=== PATIENT | male | born 1995 | race Caucasian/White ===

== ENCOUNTER 2021-04-30 20:01 | Emergency (ER) | payer SELFPAY ==
[2021-04-30] MEDS ORDERED: Sodium Chloride 0.9% 100 ML BAG FS ONE (20:02)
[2021-04-30] MEDS ORDERED: Iopamidol 370 76% 125 ML VIAL FS ONE (20:02)
[2021-04-30] MEDS ORDERED: Ondansetron PF 4 MG/2 ML Vial ONE (21:07)
[2021-04-30] MEDS ORDERED: Lactated Ringer's 2,000 ML ONE (21:07)
[2021-04-30] MEDS ORDERED: Acetaminophen 500 MG TAB ONE (21:07)
[2021-04-30 21:36] LABS: #Basophils 0.1 thou/uL (0.0-0.2); #Lymphocytes 0.5 thou/uL (1.20-3.40); #Monocytes 0.7 thou/uL (0.11-0.59); #Neutrophils 8.4 thou/uL (1.40-6.50); %Basophils 0.8 % (0.0-1.0); %Eosinophils 0.1 % (0.0-10.0); %Lymphocytes 4.9 % (21.0-51.0); %Monocytes 6.7 % (0.0-10.0); %Neutrophils 87.5 % (42.0-75.0); Hemoglobin 17.7 g/dL (14.0-18.0); Mean Corpuscular HGB CONC 32.2 g/dL (32.0-36.0); Mean Corpuscular Hemoglobin 28.8 pg (27.0-31.0); Mean Corpuscular Volume 89.4 fL (78.0-98.0); Mean Platelet Volume 11.1 fL (7.4-10.4); Platelet Count 144 thou/uL (130-400); RBC Distribution Width 11.1 % (11.5-14.5); Red Blood Cell (RBC) Count 6.14 mill/uL (4.70-6.10); White Blood Cell (WBC) Count 9.6 thou/uL (4.8-10.8)
[2021-04-30 21:49] LABS: ALT (SGPT) 45 U/L (8-55); AST (SGOT) 27 U/L (5-34); Albumin 4.5 g/dL (3.5-5.0); Alkaline Phosphatase 48 U/L (40-110); Anion Gap 16 mmol/L (10-20); BUN (Urea Nitrogen) 14 mg/dL (8.9-20.6); Bilirubin, Total 0.9 mg/dL (0.2-1.2); Calc. Creatinine Clearance 0 mL/min (70-130); Calcium 9.2 mg/dL (7.8-10.44); Carbon Dioxide 22 mmol/L (22-29); Chloride 104 mmol/L (98-107); Globulin 3.2 g/dL (2.4-3.5); Glucose 123 mg/dL (70-105); Lipase 18 U/L (8-78); Magnesium 1.5 mg/dL (1.6-2.6); Potassium 3.5 mmol/L (3.5-5.1); Protein, Total 7.7 g/dL (6.0-8.3); Sodium 138 mmol/L (136-145)
[2021-04-30] MEDS ORDERED: Ibuprofen 800 MG TAB ONE (22:21)
[2021-04-30] MEDS ORDERED: Magnesium 2 GM/50 ML BAG (IN WATER) ONE ×2 (22:21→22:28)
[2021-05-01] MEDS ORDERED: Diphenoxylate HCl/Atropine Tablet ONE (00:33)
[2021-05-01 17:57] LABS: SARS-CoV-2 PCR by NAA Not Detected (NotDetected)
== END 2021-05-01 01:58 | disposition home or self-care (01) ==
LOC: MADERS 20:01
DX: R19.7 Diarrhea, unspecified (principal); E83.42 Hypomagnesemia; J06.9 Acute upper respiratory infection, unspecified; R79.1 Abnormal coagulation profile; R00.0 Tachycardia, unspecified; Z20.822 Contact with and (suspected) exposure to COVID-19
CPT/HCPCS: 71045; 71275; 80053; 82550; 83605; 83690; 83735; 84443; 84484; 85025; 85379; 87040; 87804; 93005; 94760; 96365; 96375; J2405; J3475; J7120; Q9967; U0003; U0005

== ENCOUNTER 2023-03-26 18:46 | Emergency (ER) | payer SELFPAY ==
[2023-03-26] MEDS ORDERED: Famotidine 20 MG TAB ONE (19:28)
[2023-03-26] MEDS ORDERED: Mag-Al Plus 1200/1200/120 MG (30 mL) UDCUP ONE (19:29)
[2023-03-26] MEDS ORDERED: Lidocaine 2% Viscous 100 ML BOTTLE ONE (19:29)
[2023-03-26 19:35] LABS: #Basophils 0.1 thou/uL (0.0-0.2); #Eosinphils 0.2 thou/uL (0.0-0.7); #Lymphocytes 1.6 thou/uL (1.20-3.40); #Monocytes 0.5 thou/uL (0.11-0.59); %Basophils 1.3 % (0.0-1.0); %Eosinophils 3.8 % (0.0-10.0); %Lymphocytes 29.1 % (21.0-51.0); %Monocytes 9.8 % (0.0-10.0); Hematocrit 51.6 % (42.0-52.0); Hemoglobin 16.9 g/dL (14.0-18.0); Mean Corpuscular HGB CONC 32.7 g/dL (32.0-36.0); Mean Corpuscular Hemoglobin 29.6 pg (27.0-31.0); Mean Corpuscular Volume 90.7 fl (78.0-98.0); Mean Platelet Volume 12.9 fL (7.4-10.4); Platelet Count 172 10x3/uL (130-400); RBC Distribution Width 11.4 % (11.5-14.5); Red Blood Cell (RBC) Count 5.69 mill/uL (4.70-6.10); White Blood Cell (WBC) Count 5.4 10x3/uL (4.8-10.8)
[2023-03-26 19:39] LABS: ALT (SGPT) 48 U/L (8-55); AST (SGOT) 25 U/L (5-34); Albumin 4.4 g/dL (3.5-5.0); Alkaline Phosphatase 46 U/L (40-110); Anion Gap 15 mmol/L (10-20); BUN (Urea Nitrogen) 13 mg/dL (8.9-20.6); Bilirubin, Total 0.5 mg/dL (0.2-1.2); Calc. Creatinine Clearance 0 mL/min (70-130); Calcium 9.4 mg/dL (7.8-10.44); Carbon Dioxide 25 mmol/L (22-29); Chloride 104 mmol/L (98-107); Estimated GFR 101; Globulin 2.9 g/dL (2.4-3.5); Glucose 105 mg/dL (70-105); Lipase 23 U/L (8-78); Potassium 3.6 mmol/L (3.5-5.1); Protein, Total 7.3 g/dL (6.0-8.3); Sodium 140 mmol/L (136-145)
== END 2023-03-26 20:11 | disposition home or self-care (01) ==
LOC: MADERS 18:46
DX: R10.11 Right upper quadrant pain (principal); F17.220 Nicotine dependence, chewing tobacco, uncomplicated
CPT/HCPCS: 80053; 83690; 85025; 93005

== ENCOUNTER 2024-01-12 19:15 | Emergency (ER) | payer SELFPAY | END 2024-01-12 20:05 | disposition home or self-care (01) | LOC: MADERS 19:15 | DX: K40.90 Unilateral inguinal hernia, without obstruction or gangrene, not specified as recurrent (principal); F17.220 Nicotine dependence, chewing tobacco, uncomplicated | CPT/HCPCS: 99283 ==